=== PATIENT | male | born 1995 | race Caucasian/White ===

== ENCOUNTER 2024-07-05 19:28 | Emergency (ER) | payer OTHER ==
[~2024-07-05] VITALS: Ht 175.3 cm; Wt 74.8 kg
[~2024-07-05 19:28] MED LIST: MUPI2TC TOP; Percocet 5-3251 EACH PO
[2024-07-06 02:39] VITALS: BP 125/99
[2024-07-06] MEDS ORDERED: Cephalexin Monohydrate 500 MG Cap PO ONE (02:55)
[2024-07-06] MEDS ORDERED: CEPH500 PO (03:34)
== END 2024-07-06 04:25 | disposition home or self-care (01) ==
LOC: ER 19:28
DX: S51.012A Laceration without foreign body of left elbow, initial encounter (principal); F17.220 Nicotine dependence, chewing tobacco, uncomplicated; Z59.89 Other problems related to housing and economic circumstances; Z91.030 Bee allergy status; V86.56XA Driver of dirt bike or motor/cross bike injured in nontraffic accident, initial encounter
CPT/HCPCS: 73080; 99283-25; A9270